=== PATIENT | male | born 2000 | race Caucasian/White ===

== ENCOUNTER 2024-07-22 22:29 | Emergency (ER) | payer MEDICAID, SELFPAY ==
[2024-07-22 22:31] VITALS: BMI 29.0
--- NOTE | 2024-07-22 22:48 | PC.NURSE ---
PROVIDER AWARE OF PTS COMPLAINTS. C COLLAR PLACED ON PT. SHORTLY AFTER THAT, PT REMOVED COLLAR. PT BECAME DIAPHORETIC AND BEGAN YELLING FOR HELP. PT TAKEN BACK TO ED..
[2024-07-22 22:54] VITALS: BP 100/66; PULSE 69; RESP 16; TEMP 36.5; O2SAT 95
--- NOTE | 2024-07-22 22:55 | PD.EDHEAD ---
ED Head Injury RME/HPI General Chief complaint: Head Injury Stated complaint: HEAD INJURY LACERATION Time Seen by Provider: 07/22/24 22:58 Source: patient and RN notes reviewed Arrival date/time: 07/22/24 22:29 Limitations: no limitations RME / HPI RME / HPI Narrative: Dr. Allen's Main ED Evaluation: 24yo male with no significant past medical history presents to the ED for a head injury. Patient states he was rock climbing when he fell 15-20 feet ~1530. Patient states he hit his head on a rock and lost consciousness for less than 5 minutes. Patient states he was able to ambulate after he fell. Patient states he went home and fell asleep, reporting he woke up and my head was bleeding , so he came in for evaluation. Patient reports associated lightheadedness, dizziness, sweating, chills, nausea, and a headache that he rates as a 7 out of 10 in severity. Patient denies any vomiting, diarrhea, abdominal pain, chest pain, extremity pain or any other associated symptoms. He is not on any daily medications. NKA. LOBO Complaint: head injury and fall Mechanism of Injury: fall Loss of Consciousness: yes Location of injury: frontal Associated symptoms: nausea Related Data Allergies Allergy/AdvReac Type Severity Reaction Status Date / Time No Known Allergies Allergy Verified 07/23/24 00:07 Review of Systems Review of Systems Systems Reviewed: All systems reviewed, normal except as documented Past Medical History Social History SMOKING STATUS: Current some day smoker ED Exam Narrative Physical exam: PRIMARY SURVEY: A: airway patent, phonating. Patient removed c-collar B: breath sounds equal and symmetric, good chest rise and fall, breath sounds not distant, no crepitus, no obvious deformities or chest wall deformities C: heart sounds present and not distant, no JVD, strong pulses in all four extremities D: GCS 15, moving all four extremities E: pelvis stable, no obvious open joints, no obvious deformities, compartments generally soft F: no suggestion of G: per EMS point of care glucose within normal limits SECONDARY SURVEY: GENERAL: In general the patient is awake, interactive, in an emergency department gurney, wearing a hospital gown. HEAD/EYES/EARS/NOSE/THROAT: normo-cephalic, 4 cm laceration to the midline of the parietal areas, 1 cm superficial laceration to the distal left parietal area that does not require sutures, extra-ocular eye movements are intact, pupils are equal, round, and reactive to light, mucus membranes are moist, anicteric, palpebral conjunctiva is pink. Thyroid is not tender, not enlarged and not nodular, no carotid bruit, no jugular venous distension, trachea is midline, uvula unremarkable, oropharyngeal cavity unremarkable. CARDIOVASCULAR: regular rate and regular rhythm, no murmurs/rubs or gallops, normal S1 and S2, heart sounds are not distant, strong pulses in all four extremities that are equal and symmetric bilateral upper and lower extremities. CHEST/PULMONARY: normal chest rise and fall, good air movement, clear to auscultation bilaterally without rhonchi, rales or wheezing, normal inspiratory to expiratory ratios without evidence of respiratory distress. Speaking in full sentences. ABDOMEN: soft, not tender, no rebound, no guarding, normal bowel sounds that are present in all four quadrants, no pulsatile masses, BACK: no c/t/l spine tenderness, normal range of motion without reproducible pain, NEUROLOGICAL: cranio-facial features are symmetric, speech is clear, no obvious word finding difficulties and answers to questions are provided without hesitation or difficulty, normal motor and sensory function of the bilateral upper and lower extremities that are equal and symmetric left and right, no evidence of cerebellar dysfunction. EXTREMITY: no tenderness to palpation over the long bones or large joints of the bilateral upper and lower extremities, no joint swelling, no joint erythema, no signs of trauma, no unilateral leg swelling and no peripheral edema. SKIN: warm, mild diaphoretic, abrasion to the anterior midline of the tibial area PSYCH: calm, cooperative, yelling and screaming when we place an IV. General Limitations: Present no limitations Course Quality Measures none Orders Category Date Time Status Insert IV QSHIFT Care 07/22/24 22:55 Completed Irrigate Wound NOW Care 07/22/24 23:34 Completed Rigid cervical collar PRN Care 07/22/24 22:[address] cervical spine wo con Stat Exams 07/22/24 22:[address] head/brain wo con Stat Exams 07/22/24 22:55 Completed Alcohol, Blood Medical Stat Lab 07/22/24 21:41 Completed Amylase Stat Lab 07/22/24 21:41 Completed CBC Stat Lab 07/22/24 21:41 Completed Comprehensive Metabolic Panel Stat Lab 07/22/24 21:41 Completed Lactate (Lactic Acid) Stat Lab 07/22/24 21:41 Completed Lipase Stat Lab 07/22/24 21:41 Completed Partial Thromboplastin Time Stat Lab 07/22/24 21:41 Completed Prothrombin Time with INR Stat Lab 07/22/24 21:41 Completed Troponin I Stat Lab 07/22/24 21:41 Completed Lidocaine 5% Oint Med 07/22/24 23:18 Discontinued See Dose Instructions TOP X1 ONE Ondansetron Inj [Zofran Inj] Med 07/22/24 22:55 Discontinued 4 mg IV PRN PRN Sodium Chloride 0.9% 1000 ml [Ns] 1,000 ml Med 07/22/24 22:57 Discontinued IV 999 mls/hr Sodium Chloride 0.9% 1000 ml [Ns] 1,000 ml Med 07/22/24 23:16 Discontinued IV 999 mls/hr Reevaluation(s) Reevaluation #1: Patient is resting comfortably at this time. He is not vomiting or altered at this time. Time: 23:36 Vital Signs Vital signs: Vital Signs Temperature 97.7 F 07/22/24 22:54 Pulse Rate 69 07/22/24 22:54 Respiratory Rate 16 07/22/24 22:54 Blood Pressure 100/66 07/22/24 22:54 Pulse Oximetry (%) 95 07/22/24 22:54 Oxygen Delivery Method Room Air 07/22/24 22:54 Head Injury MDM Narrative MDM Narrative:: Scribe Attestation: 07/22/24 - Eloisa Grey am scribing for and in the presence of Dr. Allen. 2254: Patient sent to CT. 2309: Patient returned from CT without his c-collar in place. When I tried to re-apply it, patient refused. Patient informed of the risks and he verbalized understanding. 0053: Informed that the patient is wanting to sign out against medical advice. Patient was informed of the risks of leaving without full work-up being completed. Patient signed out AMA. Patient data External records reviewed:: [facility] previous records (Per chart review, patient has no previous ED visits or admissions to this facility.) Clinical information provided by:: patient Social determinants that could affect healthcare access:: none Patient has the following chronic illnesses:: none How is presenting disease/condition affected by chronic disease/condition?: no chronic disease Evaluation data The following diagnostics were reviewed and interpreted by me:: lab results, radiology exam(s) and EKG tracing(s) Lab and/or radiology exams considered but not ordered:: none Interpretation Summary: WBC 11.2, PT and INR are normal, PTT is normal, CMP is normal, Lactic Acid is normal, Troponin is normal, Blood Alcohol is negative, according to my interpretation. EKG done at 2317, 75, early repolarization, QTc: 427, OR interval: 166, no STEMI, according to my interpretation. [facility] Report Signed Patient: TERRIE LORENZO [facility]. Record#: [id number] Birthdate: 2000 Age/Sex: 24 / M Location: [facility] Attending Dr: Ordering Physician: Lynnette Siegel MD Date of Service: 07/22/24 Procedure(s): CT head/brain wo con Accession Number(s): [id number] cc: Pal Hernandez MD; NO PRIMARY/FAMILY,PHYSICIAN; Lynnette Siegel MD~ Examination: CT brain head without contrast. 2-D sagittal coronal reconstructions Date and time of exam:July 22, 2024 11:02 PM INDICATIONS: Patient fell today with injury to the head, head pain CTDI: vol (mGy):52 DLP: (mGycm):1053 Technique: Multiple CT axial sections of the brain have been obtained, 5 mm slice thickness. Contrast has not been administered. 2-D sagittal, coronal reconstructions have been obtained Low dose protocols were performed. One or more of the following dose reduction techniques were used; automated exposure control, adjustment of the mA and/or KV according to patient size, use of iterative reconstruction technique. Findings: No significant ventricular enlargement. Intra-axial or extra-axial hemorrhage density is not seen. No mass effect or midline shift Basal cisterns are not remarkable. Fourth ventricle is midline. Cranial vault intact. Impression: Negative for acute hemorrhage, mass effect or midline shift Dictated By: Pal Hernandez MD Signed By: <Electronically signed by Pal Hernandez MD in [place]> 07/22/24 2352 [facility] Report Signed Patient: TERRIE LORENZO [facility]. Record#: [id number] Birthdate: 2000 Age/Sex: 24 / M Location: [facility] Attending Dr: Ordering Physician: Lynnette Siegel MD Date of Service: 07/22/24 Procedure(s): CT cervical spine wo con Accession Number(s): [id number] cc: Pal Hernandez MD; NO PRIMARY/FAMILY,PHYSICIAN; Lynnette Siegel MD~ Examination: CT cervical spine without contrast 2-D sagittal reconstructions 2-D coronal reconstructions 3-D reconstructions. Exam date and time:July 23, 2019 5:11 PM INDICATIONS: Patient fell today with injury to the neck, neck pain CTDI:vol (mGy) 9.71 DLP: (mGycm) 223 Technique: Multiple 2 mm axial sections of the cervical spine have been obtained. The coronal and sagittal reconstructions have been obtained. 3-D reconstructions have been obtained. Low dose protocols were performed. One or more of the following dose reduction techniques were used; automated exposure control, adjustment of the mA and/or KV according to patient size, use of iterative reconstruction technique. Findings: Axial sections demonstrate intact base of the skull. C1 exhibit satisfactory relationship to the odontoid. No acute cervical vertebral body fracture seen. Alignment posterior spinous processes satisfactory. Impression: No acute cervical fracture. Dictated By: Pal Hernandez MD Signed By: <Electronically signed by Pal Hernandez MD in [place]> 07/22/24 6600 Medications / Prescriptions Medications or Prescriptions considered but not ordered:: none Medication administrations:: Medication Administration History Discontinued Medications Sodium Chloride (Ns) 1,000 mls @ 999 mls/hr IV .Q1H1M ONE Stop: 07/22/24 23:57 Last Infusion: 07/23/24 01:02 Dose: Infused Documented By: Admin: 07/22/24 23:26 Dose: 999 mls/hr Documented By: Sodium Chloride (Ns) 1,000 mls @ 999 mls/hr IV .Q1H1M ONE Stop: 07/23/24 00:16 Lidocaine (Lidocaine Oint 5% 30 Gm Tube) 0 gm TOP X1 ONE Stop: 07/22/24 23:19 Ondansetron HCl (Ondansetron Inj 2 Mg/Ml Inj 2 Ml) 4 mg IV PRN PRN PRN Reason: NAUSEA OR VOMITING see above Consultations Consultation(s) initiated? (list below): No Diagnosis Differential diagnosis head injury: other (concussion, ICH, laceration, contusion) Most likely diagnosis given after review of the tests above:: AMA Admission Indicated Admission indicated?: not indicated Admission Request Was there a request for admission?: No Disposition Plan Disposition Plan: other (specify) (Against Medical Advice) Discharge Plan Plan Patient Disposition: Left Against Medical Advice Patient condition on transfer: Stable Prescriptions/Referrals Referrals: No Primary/Family,Physician [Primary Care Provider] - In 1 week Problem List Clinical Impression: Closed head injury, Left against medical advice, Laceration Patient/Caregiver Discharge Instructions Print Language: Wallisian
--- NOTE | 2024-07-22 23:14 | PC.NURSE ---
pt refusing to wear c-collar.
[2024-07-22] MEDS: SODIUM CHLORIDE 0.9% 1000 ML 1,000 ML 999 ML IV (23:26)
[2024-07-22 23:52] LABS: Basophils # (Auto) 0.1 Thou/mm3 (0.0-0.2); Basophils % (Auto) 1 % (0-2.5); Eosinophils # (Auto) 0.1 Thou/mm3 (0.0-0.5); Eosinophils % (Auto) 1 % (0-10); Hematocrit 39.6 % (41.0-53.0); Hemoglobin 14.1 g/dL (13.5-16.0); Immature Granulocytes % (Auto) 0 % (0-0); Immature Granulocytes Auto 0.03 Thou/mm3 (0.00-0.00); Lymphocytes # (Auto) 2.9 Thou/mm3 (1.0-4.8); Lymphocytes % (Auto) 26 % (10-50); Mean Corpuscular HGB Conc 35.6 g/dl (31.0-37.0); Mean Corpuscular Hemoglobin 31.2 pg (25.0-35.0); Mean Corpuscular Volume 88 fL (80-100); Monocytes % (Auto) 9 % (0-12); Neutrophils # (Auto) 7.1 Thou/mm3 (1.8-7.7); Neutrophils % (Auto) 64 % (37-80); Nucleated Red Blood Cell % 0 /100 WBC (0); Platelet Count 398 Thou/mm3 (140-440); RDW Standard Deviation 39.3 fL (35.1-43.9); Red Blood Count 4.52 Miln/mm3 (4.50-5.90); White Blood Count 11.2 Thou/mm3 (3.8-10.6)
[2024-07-23 00:07] LABS: INR 1.1 (0.9-1.3); Prothrombin Time 11.7 Seconds (9.0-12.2)
[2024-07-23 00:08] LABS: Partial Thromboplastin Time 23.5 Seconds (22.0-36.0)
[2024-07-23 00:21] LABS: Alanine Aminotransferase 18 U/L (10-49); Albumin, Serum 4.4 gm/dL (3.5-5.0); Alcohol, Blood Medical < 3.0 mg/dL (0-10.0); Alkaline Phosphatase 60 U/L (46-116); Amylase 33 U/L (30-118); Anion Gap 8 (7-16); Aspartate Amino Transferase 22 U/L (0-34); BUN/Creatinine Ratio 22 Ratio (12-20); Blood Urea Nitrogen 26 mg/dL (9-23); Calcium 8.7 mg/dL (8.3-10.6); Calcium (Corrected) 8.7 mg/dL (8.5-10.1); Carbon Dioxide 29.6 mMol/L (20.0-31.0); Chloride 102 mMol/L (98-107); Creatinine (Component) 1.2 mg/dL (0.6-1.3); Estimated Creatinine Clearance 93.6 mL/min (>60); Glucose 121 mg/dL (74-106); Lipase 36 U/L (12-53); Osmolality,Calculated 285 (275-295); Potassium 3.4 mMol/L (3.4-5.1); Sodium 140 mMol/L (136-145); Troponin I < 0.002 ng/mL (0.0-0.045); eGFR > 60 See Note
[2024-07-23 00:22] LABS: Albumin/Globulin Ratio 2.1 (1.2-2.2); Globulin 2.1 gm/dL (2.3-3.5); Total Protein 6.5 gm/dL (5.7-8.2)
--- NOTE | 2024-07-23 00:59 | PC.NURSE ---
PT REFUSING TO CONTINUE WITH MEDICAL CARE. I ASKED WHY AND HE SATED HE HAD BEEN HERE TO LONG(2 HOURS AND 20 MIN). PT STATES HE WANTS TO GO HOME AND HAVE HIS MEAL. PT SIGNED AMA FORM. PT IS AWAKE AND ALERT X 4, PT RESP EVEN AND UNLABORED AT THIS TIME.
--- NOTE | 2024-07-23 01:19 | PC.NURSE ---
Pt Left ER Against Medical Advice at this time. Pt noted to bed A/O x 4 with no acute breating distress noted or reported, pt also noted to have steady gait. All personal belonging returned to pt prior to leaving ER. Pt stated he would be calling is cousin to pick him up from the ER.
== END 2024-07-23 01:24 | disposition left against medical advice (07) ==
PROVIDERS: Emergency Provider Emergency Medicine
DX: S01.01XA Laceration without foreign body of scalp, initial encounter (principal); S19.9XXA Unspecified injury of neck, initial encounter; W17.89XA Other fall from one level to another, initial encounter; Y93.31 Activity, mountain climbing, rock climbing and wall climbing; Z53.29 Procedure and treatment not carried out because of patient's decision for other reasons
CPT/HCPCS: 36415; 70450; 72125; 80053; 80307; 80320; 81001; 82150; 83605; 83690; 84484; 85025; 85610; 85730; 96360; 96361; 99285; J7030; G0480

== ENCOUNTER 2024-07-23 09:16 | Emergency (ER) | payer MEDICAID, SELFPAY ==
[2024-07-23 09:17] VITALS: BMI 29.0
[2024-07-23 09:27] VITALS: BP 146/75; PULSE 67; RESP 18; TEMP 36.6; O2SAT 98; BMI 28.8
--- NOTE | 2024-07-23 09:32 | EDNOTE_ITS ---
ED Wound/Laceration-RME/HPI General Chief Complaint: Wound/Laceration Stated Complaint: LAC TO TOP OF HEAD Time Seen by Provider: 07/23/24 09:24 Source: patient Arrival date/time: 07/23/24 09:16 24-year-old male with no known medical history presents to the emergency room with a chief complaint of a laceration to the center of his scalp after rockclimbing yesterday afternoon. Mode of arrival: ambulatory Limitations: no limitations Related Data Allergies Allergy/AdvReac Type Severity Reaction Status Date / Time No Known Allergies Allergy Verified 07/23/24 00:07 Review of Systems Review of Systems Systems Reviewed: All systems reviewed, normal except as documented Constitutional Constitutional: Reports system reviewed and no additional complaints, except as documented, Denies fatigue, Denies fever(s), Denies headache(s) and Denies weakness Eyes Eyes: Reports system reviewed and no additional complaints, except as documented, Denies blurry vision and Denies change in vision ENT Ears, Nose, Mouth, and Throat: Reports system reviewed and no additional complaints, except as documented, Denies otalgia, Denies headache(s), Denies nasal congestion, Denies throat swelling and Denies vertigo Cardiovascular Cardiovascular: Reports system reviewed and no additional complaints, except as documented, Denies chest pain, Denies dyspnea and Denies dyspnea on exertion Respiratory Respiratory: Reports system reviewed and no additional complaints, except as documented, Denies chest congestion, Denies cough, Denies dyspnea, Denies dyspnea on exertion and Denies wheezing Gastrointestinal Gastrointestinal: Reports system reviewed and no additional complaints, except as documented, Denies abdominal pain, Denies cramping, Denies nausea and Denies vomiting Genitourinary Genitourinary: Reports system reviewed and no additional complaints, except as documented, Denies dysuria and Denies hematuria Musculoskeletal Musculoskeletal: Reports system reviewed and no additional complaints, except as documented and Denies back pain Integumentary/Breasts Skin/Breast: Reports system reviewed and no additional complaints, except as documented and Reports wounds Neurologic Neurologic: Reports system reviewed and no additional complaints, except as documented, Denies confusion, Denies headache(s), Denies lack of coordination, Denies vertigo and Denies weakness Psychiatric Psychiatric: Reports system reviewed and no additional complaints, except as documented, Denies anxiety, Denies confusion, Denies depression, Denies paranoia, Denies suicidal ideation and Denies tactile hallucinations Endocrine Endocrine: Reports system reviewed and no additional complaints, except as documented and Denies fatigue Hematologic/Lymphatic Hematologic/Lymphatic: Reports system reviewed and no additional complaints, except as documented and Denies lymphadenopathy Allergic/Immunologic Allergic/Immunologic: Reports system reviewed and no additional complaints, except as documented, Denies throat swelling, Denies urticaria and Denies wheezing Past Medical History Social History SMOKING STATUS: Current some day smoker ED Exam General Limitations: Present no limitations General appearance: Present alert and in no apparent distress Head Head exam: Present atraumatic, normocephalic and normal inspection Expanded Head Exam Head exam physical: Present laceration; Absent abrasion, contusion, hematoma, raccoon eyes, Gonzalez's sign, tenderness of temporal artery, CSF rhinorrhea or CSF otorrhea Head image: 2 1. 3 cm laceration to the center of his scalp Eye Eye exam: Present normal appearance, PERRL and EOMI ENT ENT exam: Present normal exam, normal oropharynx and mucous membranes moist Neck Neck exam: Present normal inspection, full ROM and trachea midline Chest Chest inspection: Present normal inspection and symmetric chest wall rise Respiratory Respiratory exam: Present normal lung sounds bilaterally Cardiovascular Cardiovascular exam: Present regular rate, normal rhythm and normal heart sounds Abdominal Exam Abdominal exam: Present soft and normal bowel sounds Extremities Exam Extremities exam: Present normal inspection and full ROM Back Exam Back exam: Present normal inspection and full ROM Neurological Exam Neurological exam: Present alert, oriented X3 and CN II-XII intact Psychiatric Psychiatric exam: Present normal affect and normal mood Skin Skin exam: Present warm, dry, intact and normal color Course Quality Measures none Orders Category Date Time Status Acetaminophen Tab [Tylenol ES Tab] Med 07/23/24 09:31 Discontinued 1,000 mg PO X1 ONE Ibuprofen Tab [Motrin Tab] Med 07/23/24 09:31 Discontinued 600 mg PO X1 ONE Vital Signs Vital signs: Vital Signs Temperature 97.8 F 07/23/24 09:27 Pulse Rate 67 07/23/24 09:27 Respiratory Rate 18 07/23/24 09:27 Blood Pressure 146/75 H 07/23/24 09:27 Pulse Oximetry (%) 98 07/23/24 09:27 Oxygen Delivery Method Room Air 07/23/24 09:27 O2 saturation 90% within normal limits Wound / Laceration MDM Narrative MDM Narrative:: 24-year-old male with no known medical history presents to the emergency room with a chief complaint of a laceration to the center of his scalp after rockclimbing yesterday afternoon. Patient is hemodynamically stable and in no apparent distress Physical examination shows a 3 cm laceration to the center of his scalp. Patient states this injury occurred yesterday or rockclimbing. Patient was seen here yesterday but eloped. I reviewed the CT of his head and neck which were both negative. The laceration occured yesterday afternoon The mechanism of injury was a rock Sensation is intact. There is full ROM. There is no exposed tendons. No foreign bodies. Lidocaine 1% was used for anesthesia. The wound was irrigated extensively with normal saline. 4 lorene were placed. A dressing was placed. There were no complications. Patient was educated to keep the area clean and dry for 24 hours, then clean daily with soap and water. Patient was educated to return for any signs of infection including swelling pain redness pus or fever and to make an appointment with primary care provider in 48 hours. Patient was educated to follow up with primary or return to emergency room for suture removal in the next 7-10 days. Patient data External records reviewed:: [facility] previous records Clinical information provided by:: patient Social determinants that could affect healthcare access:: none Patient has the following chronic illnesses:: No chronic illness How is presenting disease/condition affected by chronic disease/condition?: no chronic disease Evaluation data The following diagnostics were reviewed and interpreted by me:: lab results and radiology exam(s) Lab and/or radiology exams considered but not ordered:: Labs and radiology exams considered and ordered Interpretation Summary: N/A Medications / Prescriptions Medications or Prescriptions considered but not ordered:: Medication given Medication administrations:: Medication Administration History Discontinued Medications Acetaminophen (Acetaminophen 500 Mg Tablet) 1,000 mg PO X1 ONE Stop: 07/23/24 09:32 Ibuprofen (Ibuprofen Tab 600 Mg Tablet) 600 mg PO X1 ONE Stop: 07/23/24 09:32 Medication given Consultations Consultation(s) initiated? (list below): No Diagnosis Wound Differential Diagnosis: laceration, abrasion and avulsion of skin Most likely diagnosis given after review of the tests above:: Laceration Admission Indicated Admission indicated?: not indicated Admission Request Was there a request for admission?: No Disposition Plan Disposition Plan: Discharge Discharge Attestation Discharge Attestation: The patient and all family members were given an opportunity to ask questions and understood the discharge instructions. Discharge instructions specifically effects, indications for sooner follow up or return to the emergency department, and the expected course of current diagnosis. Patient condition: Stable Discharge Plan Plan Patient Disposition: HOME (Self Care) Discharge Disposition comment: Stable Problem List Clinical Impression: Laceration of scalp Patient/Caregiver Discharge Instructions Education Materials: ED Head Injury (Adult), ED Laceration Scalp Sutures or ... Additional Instructions: Please follow-up with your primary care provider in the next 24 to 48 hours Lorene were used to close and approximate the wound. You can return in 7 to 10 days for suture removal For any evidence of worsening signs or symptoms return to the emergency room immediately Print Language: Hebrew Stand Alone Forms: Meenakshi Award Info., Patient Portal Info Letter PA/AROLDO Supervising Physician KAREN/AROLDO Supervising Physician: Dr. Solano
[2024-07-23] MEDS: IBUPROFEN TAB 600 MG TABLET PO (09:37)
[2024-07-23] MEDS: ACETAMINOPHEN 500 MG TABLET 1000 MG PO (09:37)
== END 2024-07-23 09:46 | disposition home or self-care (01) ==
LOC: SERX 09:43
PROVIDERS: Emergency Provider Family Medicine
DX: S01.01XA Laceration without foreign body of scalp, initial encounter (principal); X58.XXXA Exposure to other specified factors, initial encounter; Y93.31 Activity, mountain climbing, rock climbing and wall climbing
CPT/HCPCS: 12002; 99283; A9270

== ENCOUNTER 2024-07-30 11:03 | Emergency (ER) | payer MEDICAID, SELFPAY ==
[2024-07-30 11:04] VITALS: BMI 29.0
[2024-07-30 11:12] VITALS: BP 127/71; PULSE 90; RESP 16; TEMP 36.8; O2SAT 97
--- NOTE | 2024-07-30 11:22 | EDNOTE_ITS ---
ED Wound/Laceration-RME/HPI General Chief Complaint: Wound Recheck / Suture Removal Stated Complaint: STAPLE REMOVAL Time Seen by Provider: 07/30/24 11:14 Arrival date/time: 07/30/24 11:03 24-year-old male presents emergency department today requesting staple removal. Patient was seen 7 days ago and had xochilt placed to his scalp Limitations: no limitations Related Data Previous Rx's ?Medication ?Instructions ?Recorded acetaminophen 500 mg capsule 1,000 mg (2 x 500 mg) PO Q8HR PRN 07/30/24 pain #30 caps Allergies Allergy/AdvReac Type Severity Reaction Status Date / Time No Known Allergies Allergy Verified 07/30/24 11:05 Review of Systems Review of Systems Systems Reviewed: All systems reviewed, normal except as documented Constitutional Constitutional: Reports system reviewed and no additional complaints, except as documented, Denies fever(s) and Reports headache(s) Eyes Eyes: Reports system reviewed and no additional complaints, except as documented and Denies blurry vision ENT Ears, Nose, Mouth, and Throat: Reports system reviewed and no additional complaints, except as documented, Reports headache(s), Denies nasal congestion and Denies nasal discharge Cardiovascular Cardiovascular: Reports system reviewed and no additional complaints, except as documented, Denies chest pain and Denies dyspnea Respiratory Respiratory: Reports system reviewed and no additional complaints, except as documented, Denies chest congestion, Denies cough and Denies dyspnea Gastrointestinal Gastrointestinal: Reports system reviewed and no additional complaints, except as documented and Denies abdominal pain Integumentary/Breasts Skin/Breast: Reports system reviewed and no additional complaints, except as documented and Denies rash Neurologic Neurologic: Reports system reviewed and no additional complaints, except as documented, Reports as per HPI and Reports headache(s) Past Medical History Social History SMOKING STATUS: Current some day smoker ED Exam General Limitations: Present no limitations General appearance: Present alert and in no apparent distress Head Head exam: Present atraumatic, normocephalic and normal inspection Eye Eye exam: Present normal appearance, PERRL and EOMI; Absent conjunctival injection ENT ENT exam: Present normal exam, normal oropharynx and mucous membranes moist Neck Neck exam: Present normal inspection, full ROM and trachea midline Chest Chest inspection: Present normal inspection and symmetric chest wall rise Respiratory Respiratory exam: Present normal lung sounds bilaterally; Absent respiratory distress Cardiovascular Cardiovascular exam: Present regular rate, normal rhythm and normal heart sounds Abdominal Exam Abdominal exam: Present soft and normal bowel sounds Extremities Exam Extremities exam: Present normal inspection and full ROM Back Exam Back exam: Present normal inspection and full ROM Neurological Exam Neurological exam: Present alert, oriented X3 and CN II-XII intact Psychiatric Psychiatric exam: Present normal affect and normal mood Skin Skin exam: Present warm, dry and other (Staple scalp) Course Quality Measures none Vital Signs Vital signs: Vital Signs Temperature 98.2 F 07/30/24 11:12 Pulse Rate 90 07/30/24 11:12 Respiratory Rate 16 07/30/24 11:12 Blood Pressure 127/71 07/30/24 11:12 Pulse Oximetry (%) 97 07/30/24 11:12 Oxygen Delivery Method Room Air 07/30/24 11:12 O2 saturation 97% room air within normal limits Wound / Laceration MDM Narrative MDM Narrative:: 24-year-old male presents emergency department today requesting staple removal. Patient was seen 7 days ago and had xochilt placed to his scalp On exam wound appears to be well-approximated but I do believe pull the xochilt at this time the wound may open Explained to the patient I like him to return in 3 days for staple removal At this time there is no redness warmth or swelling to the site no evidence of infection Patient discharged home in no distress to follow-up with primary care doctor in the next 24 to 48 hours and for any worsening symptoms to return to the ER immediately Patient data External records reviewed:: [facility] previous records Clinical information provided by:: patient Social determinants that could affect healthcare access:: none Patient has the following chronic illnesses:: None How is presenting disease/condition affected by chronic disease/condition?: no chronic disease Evaluation data The following diagnostics were reviewed and interpreted by me:: other (specify) (N/A) Lab and/or radiology exams considered but not ordered:: Not ordered Interpretation Summary: Not ordered Medications / Prescriptions Medications or Prescriptions considered but not ordered:: Rx given Medication administrations:: Rx given Consultations Consultation(s) initiated? (list below): No Diagnosis Wound Differential Diagnosis: laceration, abrasion, avulsion of skin and other (Staple removal) Most likely diagnosis given after review of the tests above:: Staple removal Admission Indicated Admission indicated?: not indicated Admission Request Was there a request for admission?: No Disposition Plan Disposition Plan: Discharge Discharge Attestation Discharge Attestation: The patient and all family members were given an opportunity to ask questions and understood the discharge instructions. Discharge instructions specifically effects, indications for sooner follow up or return to the emergency department, and the expected course of current diagnosis. Patient condition: Stable Discharge Plan Plan Patient Disposition: HOME (Self Care) Discharge Disposition comment: Stable Prescriptions/Referrals Prescriptions/Med Rec: New acetaminophen 500 mg capsule 1,000 mg PO Q8HR PRN (Reason: pain) Qty: 30 0RF Problem List Clinical Impression: Laceration Patient/Caregiver Discharge Instructions Additional Instructions: Please follow up with your primary care doctor in the next 24-48hrs for any worsening symptoms return here immediately Print Language: Tajik Stand Alone Forms: Meenakshi Award Info., Patient Portal Info Letter PA/LICENSED CLINICAL PSYCHOLOGIST Supervising Physician KAREN/AROLDO Supervising Physician: Dr. simon
== END 2024-07-30 11:40 | disposition home or self-care (01) ==
LOC: SERX 11:29
PROVIDERS: Emergency Provider Emergency Medicine
DX: S01.01XD Laceration without foreign body of scalp, subsequent encounter (principal); X58.XXXD Exposure to other specified factors, subsequent encounter
CPT/HCPCS: 99281

== ENCOUNTER 2024-08-02 02:50 | Emergency (ER) | payer MEDICAID, SELFPAY ==
[2024-08-02 02:51] VITALS: BMI 29.0
[2024-08-02 03:00] VITALS: BP 131/63; PULSE 105; RESP 18; TEMP 36.8; O2SAT 98
--- NOTE | 2024-08-02 03:11 | PD.EDWOUND ---
ED Wound/Laceration-RME/HPI General Chief Complaint: Wound Recheck / Suture Removal Stated Complaint: NEEDS XOCHILT REMOVED FROM HEAD Time Seen by Provider: 08/02/24 02:56 Source: patient Arrival date/time: 08/02/24 02:50 This is a case of 24-year-old male who came in the emergency room for wound check and for removal of the xochilt patient had laceration repair on his forehead were 4 xochilt was placed patient denies any pain fever chills redness swelling or discharge Limitations: no limitations Related Data Previous Rx's ?Medication ?Instructions ?Recorded acetaminophen 500 mg capsule 1,000 mg (2 x 500 mg) PO Q8HR PRN 07/30/24 pain #30 caps doxycycline hyclate 100 mg 100 mg PO BID #20 tabs 08/02/24 tablet,delayed release mupirocin 2 % topical ointment 1 applic topical BID #22 grams 08/02/24 Allergies Allergy/AdvReac Type Severity Reaction Status Date / Time No Known Allergies Allergy Verified 08/02/24 02:53 Review of Systems Review of Systems Systems Reviewed: All systems reviewed, normal except as documented Constitutional Constitutional: Reports system reviewed and no additional complaints, except as documented Cardiovascular Cardiovascular: Reports system reviewed and no additional complaints, except as documented Respiratory Respiratory: Reports system reviewed and no additional complaints, except as documented Gastrointestinal Gastrointestinal: Reports system reviewed and no additional complaints, except as documented Musculoskeletal Musculoskeletal: Reports system reviewed and no additional complaints, except as documented Neurologic Neurologic: Reports system reviewed and no additional complaints, except as documented Past Medical History Social History SMOKING STATUS: Never smoker ED Exam General Limitations: Present no limitations General appearance: Present alert and in no apparent distress Head Head exam: Present atraumatic Eye Eye exam: Present normal appearance, PERRL and EOMI ENT ENT exam: Present normal exam, normal oropharynx and mucous membranes moist Neck Neck exam: Present normal inspection, full ROM and trachea midline Chest Chest inspection: Present normal inspection and symmetric chest wall rise Respiratory Respiratory exam: Present normal lung sounds bilaterally Cardiovascular Cardiovascular exam: Present regular rate, normal rhythm and normal heart sounds Abdominal Exam Abdominal exam: Present soft and normal bowel sounds Extremities Exam Extremities exam: Present normal inspection and full ROM Back Exam Back exam: Present normal inspection and full ROM Neurological Exam Neurological exam: Present alert, oriented X3, CN II-XII intact, normal gait and reflexes normal; Absent motor sensory deficit Psychiatric Psychiatric exam: Present normal affect and normal mood Skin Skin exam: Present warm, dry, intact, normal color and other (Noted for xocihlt it is intact no redness no swelling no discharge no cellulitis no abscess no wound dehiscence) Course Quality Measures none Vital Signs Vital signs: Vital Signs Temperature 98.3 F 08/02/24 03:00 Pulse Rate 105 H 08/02/24 03:00 Respiratory Rate 18 08/02/24 03:00 Blood Pressure 131/63 H 08/02/24 03:00 Pulse Oximetry (%) 98 08/02/24 03:00 Oxygen Delivery Method Room Air 08/02/24 03:00 Oxygen saturation is 98% in room air normal Wound / Laceration MDM Narrative MDM Narrative:: This is a case of 24-year-old male who came in the emergency room for wound check and for removal of the xochilt patient had laceration repair on his forehead were 4 xochilt was placed patient denies any pain fever chills redness swelling or discharge patient is awake alert oriented not in distress nontoxic looking vital signs stable there is no signs and symptoms of infection wound dehiscence cellulitis or abscess [place] was removed completely patient tolerated well no complication no bleeding patient was prescribed with doxycycline and mupirocin to prevent infection patient will follow-up with PCP in 2 days for evaluation and for any signs and symptoms of infection he will return in the emergency room immediately or call 911 Patient was discharged with comfortable condition walking with stable gait. Patient verbalized no further complains explained diagnosis and answered patient question. Patient is comfortable with the proposed management plan including the need to follow up with his/her primary care physician and any specialist if applicable Discussed patient for any urgent condition or worsening sx, He/She needed to go to emergency room immediately or call 911. Patient acknowledge the responsibility to follow up as instructed and to monitor her/his symptoms. For any persistence of the symptoms for more than 3-5 days return precaution advised. Discussed the result of the test and was given printed discharge instruction Patient data External records reviewed:: [facility] previous records Clinical information provided by:: patient Social determinants that could affect healthcare access:: none Patient has the following chronic illnesses:: None How is presenting disease/condition affected by chronic disease/condition?: no chronic disease Evaluation data The following diagnostics were reviewed and interpreted by me:: other (specify) (none) Lab and/or radiology exams considered but not ordered:: None Interpretation Summary: None Medications / Prescriptions Medications or Prescriptions considered but not ordered:: Given Medication administrations:: Given Consultations Consultation(s) initiated? (list below): No Diagnosis Wound Differential Diagnosis: abscess Most likely diagnosis given after review of the tests above:: Wound check no infection Admission Indicated Admission indicated?: not indicated Explain why admission is indicated or not indicated:: Not indicated Admission Request Was there a request for admission?: No Admission Attestation Admission request attestation: Not indicated Disposition Plan Disposition Plan: Discharge Discharge Attestation Discharge Attestation: The patient and all family members were given an opportunity to ask questions and understood the discharge instructions. Discharge instructions specifically effects, indications for sooner follow up or return to the emergency department, and the expected course of current diagnosis. Patient condition: Stable Discharge Plan Plan Patient Disposition: HOME (Self Care) Patient condition on transfer: Stable Prescriptions/Referrals Prescriptions/Med Rec: New doxycycline hyclate 100 mg tablet,delayed release (DR/EC) 100 mg PO BID Qty: 20 0RF mupirocin 2 % ointment 1 applic topical BID Qty: 22 0RF No Action acetaminophen 500 mg capsule 1,000 mg PO Q8HR PRN (Reason: pain) Qty: 30 0RF Referrals: No Primary/Family,Physician [Primary Care Provider] - In 1 week Problem List Clinical Impression: Visit for wound check, Removal of staple Patient/Caregiver Discharge Instructions Education Materials: ED Stitches/Staple Removal No ..., ED Wound Check (No Infection) Additional Instructions: Follow-up with your primary care physician in 2 days for reevaluation for any redness swelling discharge from the wound pain fever chills return to the emergency room immediately or call 911 take your medication as directed finish the course of antibiotic keep the wound clean and dry Print Language: Slovak Stand Alone Forms: Meenakshi Award Info., Patient Portal Info Letter PA/FOOD AND BEVERAGE OUTLETS MANAGER Supervising Physician PA/AROLDO Supervising Physician: dr hunter
== END 2024-08-02 03:20 | disposition home or self-care (01) ==
PROVIDERS: Emergency Provider Emergency Medicine
DX: Z48.02 Encounter for removal of sutures (principal)
CPT/HCPCS: 99282

== ENCOUNTER 2024-08-06 15:43 | Emergency (ER) | payer MEDICAID, SELFPAY ==
[2024-08-06 15:44] VITALS: BP 149/89; PULSE 82; RESP 19; TEMP 36.2; O2SAT 99
[2024-08-06 15:45] VITALS: PULSE 98; RESP 18; O2SAT 99; BMI 29.0
--- NOTE | 2024-08-06 15:54 | PC.NURSE ---
AT APPROX 1550, PT STARTED TO HYPERVENTILATE AND SHAKE ON EMS GURNEY AND TOOK OFF ALL THE LEADS THAT WERE PLACED BY EMS, AND TOOK OFF THE GURNEY SEAT BELT AND STATED, I CANT DO THIS! AND RUN OUT THE BACK DOOR AND RAN DOWN [facility]; LEAVING HIS GREEN WALLET BEHIND. PT THEN CAME BACK AND STATED, WHAT HAPPEN!..WHERE MY WALLET? PT WAS GIVEN HIS GREEN WALLET AND HE SAT BACK DOWN ON THE EMS GURNEY. THEN AT APPROX 1558 HE GOT UP OUT OF THE EMS GURNEY AND LEFT THE BACK DOOR STATING, THE WAIT IS TOO LONG. THE PT WAS ENCOURAGE TO STAY, BUT STILL LEFT.
== END 2024-08-06 16:00 | disposition left against medical advice (07) ==
LOC: SERX 16:06
PROVIDERS: Emergency Provider Emergency Medicine
DX: Z53.21 Procedure and treatment not carried out due to patient leaving prior to being seen by health care provider (principal)
CPT/HCPCS: 99281

== ENCOUNTER 2025-01-31 16:37 | Emergency (ER) | payer MEDICAID, SELFPAY ==
[2025-01-31 16:38] VITALS: BMI 22.6
--- NOTE | 2025-01-31 17:39 | PD.EDRME ---
Rapid Medical Screening Exam RME Arrival date/time: 01/31/25 16:37 24-year-old male with no known medical history presents to the emergency room chief complaint of visual and auditory hallucinations. The patient also states he is suicidal. 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 A comprehensive ED assessment and evaluation of the patient, analysis of all test results, and completion of the medical decision making process will be conducted by additional ED providers. Chief Complaint: Psychiatric Symptoms Time Seen by Provider: 01/31/25 17:13 Vital signs reviewed by provider: Yes Exam: The patient is a GCS of 15. He is paranoid and states he is hearing voices Clear bilateral lung sounds Clinical Impression: Suicidal ideation
[2025-01-31 17:45] VITALS: BP 145/94; PULSE 93; RESP 18; TEMP 36.8; O2SAT 95
[2025-01-31 18:30] LABS: Basophils # (Auto) 0.1 Thou/mm3 (0.0-0.2); Basophils % (Auto) 1 % (0-2.5); Eosinophils # (Auto) 0.3 Thou/mm3 (0.0-0.5); Eosinophils % (Auto) 2 % (0-10); Hematocrit 42.4 % (41.0-53.0); Hemoglobin 14.8 g/dL (13.5-16.0); Immature Granulocytes Auto 0.03 Thou/mm3 (0.00-0.00); Lymphocytes # (Auto) 3.5 Thou/mm3 (1.0-4.8); Lymphocytes % (Auto) 30 % (10-50); Mean Corpuscular HGB Conc 34.9 g/dl (31.0-37.0); Mean Corpuscular Hemoglobin 30.1 pg (25.0-35.0); Mean Corpuscular Volume 86 fL (80-100); Monocytes # (Auto) 0.9 Thou/mm3 (0.0-0.8); Monocytes % (Auto) 8 % (0-12); Neutrophils # (Auto) 7.0 Thou/mm3 (1.8-7.7); Neutrophils % (Auto) 59 % (37-80); Nucleated Red Blood Cell # 0.00 Thou/mm3 (0.00-0.00); Nucleated Red Blood Cell % 0 /100 WBC (0); Platelet Count 411 Thou/mm3 (140-440); RDW Standard Deviation 37.4 fL (35.1-43.9); Red Blood Count 4.91 Miln/mm3 (4.50-5.90); White Blood Count 11.8 Thou/mm3 (3.8-10.6)
[2025-01-31 18:45] LABS: Alcohol, Urine Negative (Negative); Amphetamine/Methamp Scrn,U Positive (Negative); Barbiturate Screen,Urine Negative (Negative); Benzodiazepines Screen,Urine Negative (Negative); Benzoylecgonine Screen, Ur Negative (Negative); Fentanyl Screen,Urine Negative (Negative); Opiate Screen,Urine Negative (Negative); THC Screen,Urine Positive (Negative)
[2025-01-31 19:25] LABS: Alanine Aminotransferase 20 U/L (10-49); Albumin, Serum 4.9 gm/dL (3.5-5.0); Albumin/Globulin Ratio 2.0 (1.2-2.2); Alkaline Phosphatase 81 U/L (46-116); Anion Gap 9 (7-16); Aspartate Amino Transferase 21 U/L (0-34); BUN/Creatinine Ratio 16 Ratio (12-20); Bilirubin,Total 0.4 mg/dL (0.3-1.2); Blood Urea Nitrogen 18 mg/dL (9-23); Calcium 9.8 mg/dL (8.3-10.6); Calcium (Corrected) 9.8 mg/dL (8.5-10.1); Carbon Dioxide 27.9 mMol/L (20.0-31.0); Chloride 104 mMol/L (98-107); Creatinine (Component) 1.1 mg/dL (0.6-1.3); Estimated Creatinine Clearance 91.4 mL/min (>60); Globulin 2.4 gm/dL (2.3-3.5); Glucose 102 mg/dL (74-106); Osmolality,Calculated 283 (275-295); Potassium 4.0 mMol/L (3.4-5.1); Sodium 141 mMol/L (136-145); Total Protein 7.3 gm/dL (5.7-8.2); eGFR > 60 See Note
[2025-01-31 19:34] VITALS: BP 155/77; PULSE 80; RESP 18; TEMP 37.1; O2SAT 97
--- NOTE | 2025-01-31 22:10 | EDNOTE_ITS ---
ED Psych RME/HPI General Chief Complaint: Psychiatric Symptoms Stated Complaint: mental health eval Time Seen by Provider: 01/31/25 17:13 Arrival date/time: 01/31/25 16:37 Limitations: no limitations RME / HPI RME / HPI Narrative: 01/31/25 16:37 24-year-old male with no known medical history presents to the emergency room chief complaint of visual and auditory hallucinations. The patient also states he is suicidal. 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 A comprehensive ED assessment and evaluation of the patient, analysis of all test results, and completion of the medical decision making process will be conducted by additional ED providers. Dr. Allen's Main ED Evaluation: 24yo male with no significant past medical history presents to the ED for a mental health evaluation. At my time of evaluation, patient is a poor historian and is not answering questions. I spoke with the patient's dad [id number], who states has been more depressed than usual over the last couple weeks, reporting the patient has been having hallucinations. He notes the patient took sleeping pills 1-2 weeks ago . Father notes the patient's brother recently . Related Data Previous Rx's ?Medication ?Instructions ?Recorded acetaminophen 500 mg capsule 1,000 mg (2 x 500 mg) PO Q8HR PRN 07/30/24 pain #30 caps doxycycline hyclate 100 mg 100 mg PO BID #20 tabs 04/27 tablet,delayed release mupirocin 2 % topical ointment 1 applic topical BID #2 2 grams 08/02/24 Allergies Allergy/AdvReac Type Severity Reaction Status Date / Time No Known Allergies Allergy Verified 01/31/25 16:40 Review of Systems Review of Systems Systems Reviewed: All systems reviewed, normal except as documented Past Medical History Social History SMOKING STATUS: Current every day smoker ED Exam General Limitations: Present no limitations General appearance: Present alert and in no apparent distress Head Head exam: Present atraumatic Eye Eye exam: Present normal appearance, PERRL and EOMI ENT ENT exam: Present normal exam, normal oropharynx and mucous membranes moist Neck Neck exam: Present normal inspection, full ROM and trachea midline Chest Chest inspection: Present normal inspection and symmetric chest wall rise Respiratory Respiratory exam: Present normal lung sounds bilaterally Cardiovascular Cardiovascular exam: Present regular rate, normal rhythm and normal heart sounds Abdominal Exam Abdominal exam: Present soft and normal bowel sounds Extremities Exam Extremities exam: Present normal inspection and full ROM Back Exam Back exam: Present normal inspection and full ROM Neurological Exam Neurological exam: Present alert, oriented X3 and CN II-XII intact Psychiatric Psychiatric exam: Present normal affect and normal mood Skin Skin exam: Present warm, dry, intact and normal color Course Course Course Narrative: Patient is medically clear for crisis evaluation. Quality Measures none Orders Category Date Time Status 1799 Psychiatric Hold NOW Care 01/31/25 22:30 Ordered One-to-one observation NOW Care 01/31/25 22:31 Active Suicide precautions NOW Care 01/31/25 17:39 Active Alcohol, Urine Stat Lab 01/31/25 18:22 Completed CBC Stat Lab 01/31/25 18:06 Completed CMP [Comprehensive Metabolic Panel] Stat Lab 01/31/25 18:06 Completed Drug Screen,Urine Stat Lab 01/31/25 18:22 Completed Vital Signs Vital signs: Vital Signs Temperature 98.3 F 01/31/25 17:45 Pulse Rate 93 01/31/25 17:45 Respiratory Rate 18 01/31/25 17:45 Blood Pressure 145/94 H 01/31/25 17:45 Pulse Oximetry (%) 95 01/31/25 17:45 Oxygen Delivery Method Room Air 01/31/25 17:45 Psych MDM Narrative MDM Narrative:: Scribe Attestation: 01/31/25 Eloisa Cox am scribing for and in the pr esence of Dr. Allen. Discussed with the Father, with SI and thoughts/depression. The patient took a bunch of sleeping pills about 1-2 weeks ago (Sleep aid)/Ativan. The patient has been more depressed recently and sleeping less. Today the father reports that he has been more depressed and feels like he is actually a little delusional. The patient does not report that he did drugs today. The father states that the sleep aid bottle of medications is at the house and it does not appear that he took any other sleep aid medications. No reported other drug overdose today. The father states that they recently lost the patient's brother does not want to lose him either . Differential diagnosis includes depression, recent overdose, suicide ideation, delusions, hallucinations, drug use. In the emergency department the patient has normal vitals positive amphetamine and marijuana on his drug screen otherwise electrolytes are normal and CBC are normal. The patient is currently placed on a 1799. He is medically cleared. Patient data External records reviewed:: [facility] previous records (Per chart review, patient has no relevant previous ED visits.) Clinical information provided by:: parent Social determinants that could affect healthcare access:: substance use Patient has the following chronic illnesses:: none How is presenting disease/condition affected by chronic disease/condition?: no chronic disease Evaluation data The following diagnostics were reviewed and interpreted by me:: lab results Lab and/or radiology exams considered but not ordered:: none Interpretation Summary: WBC 11.8, CMP normal, UDS positive for methamphetamines and marijuana, Urine alcohol negative. Medications / Prescriptions Medications or Prescriptions considered but not ordered:: none Medication administrations:: see above, if any Consultations Consultation(s) initiated? (list below): No Diagnosis Psych Differential Diagnosis: other (See MDM) Most likely diagnosis given after review of the tests above:: see clinical impression below Admission Indicated Admission indicated?: not indicated Admission Request Was there a request for admission?: No Disposition Plan Disposition Plan: other (specify) (Signed out to Dr. Brown at 1830 pending cri sis evaluation.) Discharge Plan Plan Patient condition on transfer: Stable Prescriptions/Referrals Prescriptions/Med Rec: No Action acetaminophen 500 mg capsule 1,000 mg PO Q8HR PRN (Reason: pain) Qty: 30 0RF doxycycline hyclate 100 mg tablet,delayed release (DR/EC) 100 mg PO BID Qty: 20 0RF mupirocin 2 % ointment 1 applic topical BID Qty: 22 0RF Referrals: No Primary/Family,Physician [Primary Care Provider] - In 1 week Problem List Clinical Impression: Suicidal ideation Patient/Caregiver Discharge Instructions Print Language: Vietnamese
[2025-02-01] VITALS (7 sets, daily range): BP systolic 124–146; BP diastolic 45–89; PULSE 45–80; RESP 14–19; TEMP 36.4–37.1; O2SAT 97–99
--- NOTE | 2025-02-01 07:13 | PC.SS ---
GREEN BUILDING MATERIALS DESIGNER conducted face to face assessment. Pt was somewhat able to follow with questioning, tangential in thought. He was able to state he has a meth addiction that he uses to cope with the AH/VH. Says he has thoughts of suicide and that there are a lot of ways to do it. PT says he was on lamictal but stopped taking it, which made things worse. Per father, PT took an overdose of sleeping medications 1-2 weeks ago, and when he saw that his depression/mood had continued to worsen, brought him to the ED. Father states he is responding to AH/VH and is impulsive in his behaviors, creating more concern that he will act on his SI thoughts. Pt states he wants help but doesn't know where to start, it is overwhelming and doing nothing is easier, but things are getting too bad to deal with - leading him to have impaired functioning and judgement. Pt placed on a 5150 for GD and SI. Packets will be sent out, advisement complete. Gracie Castillo, [id number]
--- NOTE | 2025-02-01 07:33 | PD.EDADDENDU ---
Emergency Room Addendum Addendum Narrative: 0600: Care assumed from Dr. Siegel, the previous shift emergency physician. Past medical, surgical, social and family history reviewed. Vitals and home medications reviewed. I will assume the care of the patient at this time, pending mental health evaluation. Please refer to the emergency department record for history and examination from initial visit.?The following addendum documentation note is intended to reflect any pending information, findings, or radiology results not included in the patient?s initial chart. Patient has been accepted by Dr. Osborn for transfer to [facility]. 1044a: Patient is becoming agitated, will order 2m po Ativan, EMS p/u at 15:00h 1500p: After the Ativan, patient has remained calm and cooperative. EMS here to transfer the patient.
--- NOTE | 2025-02-01 08:25 | PC.SS ---
Addendum entered by Maria Elena Weinstein 02/01/25 10:01: SS follow up note; SS Set up transportation for patient with Joyce from [facility] for 1500. SS will stand by for further needs. Addendum entered by Maria Elena Weinstein 02/01/25 09:48: SS follow up note; SS was contacted by Palak from [facility] and she informed SS arrival time would be for 1600. Nurse to Nurse report at 1500. SS will update Dr. Davis and patient's nurse as well. Addendum entered by Maria Elena Weinstein 02/01/25 09:43: SS follo up note; Palak from [facility] contacted SS and informed SS she would contact SS with ETA. Addendum entered by Maria Elena Weinstein 02/01/25 09:28: SS follow up note; SS contacted [facility] and spoke to Chung to check status on bed availability. Chung reported they are able to accept patient. Accepting Dr. Osborn, [address]. Nurse to Nurse report at [phone]. SS will update Dr. Davis and Patient's nurse. SS will stand by for further needs. Original Note: SS follow up note; SS sent out referral to all [facility] facilities. Patient is pending placement at the time.
--- NOTE | 2025-02-01 10:38 | PC.NURSE ---
Patient is getting agitated, patient wants his clothing and to call document review attorney, he states he wants to leave, patient stating that no one has came to evaluate him and he doesnt want to leave, plan explained to patient by building performance consultant and by Maria Elena from hospital social worker
--- NOTE | 2025-02-01 10:44 | PC.NURSE ---
Patient is calm when speaking to nurse, pt is saying he does not feel safe, he is requesting a phone to call his corporate learning consultant, phone provided, pt also agrees to take medication to help him relax, Dr. Brown aware
--- NOTE | 2025-02-01 10:56 | PC.NURSE ---
PT REQUESTING HIS WALLET TO CALL HIS ENTRY LEVEL SOFTWARE ENGINEER. WALLET GIVEN TO PT REQUESTED AT THIS TIME.
--- NOTE | 2025-02-01 11:01 | PC.CC ---
RN explained plan to patient again he agrees, he requested food, food given, sitter remains at bedside
--- NOTE | 2025-02-01 11:10 | PC.NURSE ---
Patient given two new gowns to have him feel more covered due to patient saying he is very insecure and uncomfortable not being covered
--- NOTE | 2025-02-01 11:22 | PC.NURSE ---
Pt now resting in bed, eyes closed, resp are even and unlabored, sitter remains at bedside
--- NOTE | 2025-02-01 11:30 | PC.NURSE ---
Patient provided chips, sandwich and juice
--- NOTE | 2025-02-01 12:14 | PC.NURSE ---
Addendum entered by Nya Stokes RN 02/01/25 12:17: Patient requests to keep it at bedside Original Note: Patient provided lunch tray, pt states he does not want it right now
--- NOTE | 2025-02-01 13:10 | PC.NURSE ---
Resuming patient care to relieve primary RN for lunch break. Pt laying in bed, eyes closed appears to be asleep. Respirations noted
--- NOTE | 2025-02-01 14:31 | PC.NURSE ---
Report given to [employer] BARNES at [facility]
== END 2025-02-01 15:16 ==
LOC: SERX 19:57
PROVIDERS: Emergency Medicine; Nurse Practitioner Family; Emergency Provider Emergency Medicine
DX: R45.851 Suicidal ideations (principal); R45.1 Restlessness and agitation; Z75.1 Person awaiting admission to adequate facility elsewhere
CPT/HCPCS: 36415; 80053; 80307; 80320; 85025; 96127; 99284; A9270; G0480